=== PATIENT | female | born 1960 | race Caucasian/White ===

== ENCOUNTER 2025-01-20 15:30 | Emergency (ER) | payer MEDICARE, BC, SELFPAY ==
[2025-01-20 15:31] VITALS: BP 141/86; PULSE 86; RESP 16; TEMP 36.8; O2SAT 98; BMI 23.8
--- NOTE | 2025-01-20 15:35 | RAD_ITS ---
PROCEDURE: WRIST MIN 3 VIEWS 01/20/2025 REASON FOR EXAM: PAIN TECHNIQUE: WRIST MIN 3 VIEWS COMPARISON: None FINDINGS: See below RAD/Wrist min 3 Views IMPRESSION: [id number] displaced fracture of the distal radius, with dorsal transla tion and angulation of the distal fragment. Additionally, there is a minimally displaced fracture of the ulnar styloid proc ess. Soft tissue swelling throughout the wrist. Degenerative changes at the 1st carpometacarpal and triscaphe joints. Reading Location: [facility]
--- NOTE | 2025-01-20 16:07 | EDS_ITS ---
HPI History of Present Illness Chief Complaint: Upper Extremity Injury Detail of Chief Complaint: Injury to right wrist Informant: patient Narrative Narrative: Patient presents the emergency department with complaint of injury to the right wrist. Patient states that she had been on a stationary bike and then was walking back into the house with her cane when she lost her balance and fell. She injured her right wrist. She is right-hand dominant. She denies regular head or loss of consciousness. She denies neck pain. She is not anticoagulated. PFSH PFSH Home Medications ?Medication ?Instructions ?Recorded ?Last Taken ?Type hydrocodone-acetaminophen 5-325mg 1 tab PO Q4H PRN PRN Pain 2 days 01/20/25 Unknown Rx 5mg-325mg #14 TABLETS Allergy/AdvReac Type Severity Reaction Status Date / Time No Known Allergies Allergy Verified 01/20/25 15:30 Social History Smoking Status: Never smoker ROS ROS ED Review of Systems ROS Unobtainable: other Constitutional Constitutional ED: Reports lethargy; Denies chills, fever(s), sweats or weight loss Eyes Eyes: Denies blurry vision, change in vision or diplopia ENT ENT ED: Denies rhinorrhea or sore throat Cardiovascular Cardiovascular: Denies chest pain, orthopnea or racing heartbeat Respiratory/Chest Respiratory/Chest: Denies cough, dyspnea, dyspnea on exertion, orthopnea or sputum Gastrointestinal Gastrointestinal: Denies abdominal pain, diarrhea, nausea or vomiting Genitourinary Genitourinary ED: Denies dysuria, hematuria or urinary frequency Musculoskeletal Musculoskeletal: Reports other Details: Right wrist injury/pain ; Denies arthralgias, back pain, myalgias or neck pain Integumentary Denies abscess, Abrasions or rash Neurologic Neurologic: Denies headache(s) or weakness Psychiatric Psychiatric: Denies anxiety, depression or suicidal thoughts Endocrine Endocrinology: Denies polydipsia, polyphagia or polyuria Hematologic/Lymphatic Hematologic/Lymphatic: Denies easy bleeding, easy bruising or lymphadenopathy Allergic/Immunologic Allergic/Immunologic ED: Denies mouth swelling, tongue swelling or urticaria EXAM Physical Exam Const Vital Signs: 01/20/25 15:31 Temperature 98.2 F Temperature Source Oral Pulse Rate 86 Respiratory Rate 16 Blood Pressure 141/86 H Blood Pressure Mean 104 Pulse Ox 98 Oxygen Delivery Method Room Air Positive well nourished and well developed General Appearance ED: well developed and NAD HEENT Reports TM's clear and moist mucous membranes normocephalic and atraumatic; Negative for trauma or tenderness Tympanic Membrane ED: Yes TM's clear Eyes PERRL and EOMs intact bilaterally General Eye ED: Negative for pale conjunctiva or scleral icterus Neck no lymphadenopathy, supple and no JVD General: Negative for tenderness Chest Wall inspection of chest normal and palpation of chest normal Chest: Negative for tenderness Resp normal respiratory effort and clear to auscultation bilaterally Effort and Inspection: Negative for respiratory distress or pain with movement Auscultation: Negative for rhonchi, wheezes or diminished lung sounds Cardio regular rate, regular rhythm, S1 normal heart sound, S2 normal heart sound and no murmurs Peripheral Pulses: pulses 2+ throughout GI normal to inspection, nondistended, normoactive bowel sounds, soft to palpation, non-tender, non-distended and no masses Back/Spine no CVA tenderness and no thoracic nor lumbar tenderness Extremity Extremity Narrative: Right wrist-held in flexion with obvious deformity. No broken skin. Neurovascular intact distally. Tenderness diffusely over the distal radius. General Extremety ED: Negative for edema General Extremity: Negative for edema Neuro oriented x3, CN's II-XII intact bilaterally, no sensory deficits noted and gait normal Sensorium / Orientation: awake, alert, oriented to person, oriented to place and oriented to time Motor Exam: strength 5/5 throughout and strength abnormal Psych mental status grossly normal Skin no rashes or lesions noted and no wounds MDM MDM MDM Narrative Medical decision making narrative: Patient presents with fall and injury to the right wrist. X-rays obtained showed a distal radius fracture with ulnar styloid fracture. Patient was consented for procedural sedation with propofol. She was given morphine and Zofran for pain initially. She was given total of 90 mg of propofol with good sedation. I reduced the fracture and splinted her with an AP splint. Discussed case with orthopedics on-call Dr. Rasheed who was able to evaluate the images and will follow-up in the office. Patient will be given a prescription for [place] for pain. She will be given a sling. Radiography Diagnostic Testing: Three-view x-rays of the right wrist obtained interpreted by myself as distal radius fracture with about 50% displacement initially and dorsally angulated and nondisplaced ulnar styloid fracture. Radiology in agreement. Three-view x-rays postreduction obtained interpreted by myself as improved alignment and good reduction of fracture. Procedures Procedural Sedation 1 (Initial Baseline): Consent Signed: Yes Any Problems With Anesthesia: No You/Your family experience fever (hyperthermia) w/anesthesia: No Sedation medication: Propofol Dose: 90 Route: IV [place]ampati Score: Class I ASA Classification: I Discharge Plan Triage Chief Complaint: Upper Extremity Injury ED Provider: Shaylee Hay Dx/Rx/DC Orders Clinical Impression: Closed fracture of right distal radius Instructions: ED Colles Fracture, Reduction Required Prescriptions: New hydrocodone-acetaminophen 5-325 mg tablet 1 tab PO Q4H PRN PRN (Reason: Pain) 2 Days Qty: 14 0RF Primary Care Provider: Khadijah Lo Referrals: Alecia Garcia DO [Med Staff - Nursing Education Consultant] - Abdon Rasheed DO [Med Staff - Active Staff] - 3-5 Days Print Language: Lao Disposition Disposition: Home, Self Care
[2025-01-20 17:30] VITALS: BP 102/63; BP 140/65; BP 147/95; PULSE 107; PULSE 70; PULSE 94; RESP 18; TEMP 37; O2SAT 98; O2SAT 99
--- NOTE | 2025-01-20 17:52 | RAD_ITS ---
PROCEDURE: WRIST MIN 3 VIEWS 01/20/2025 REASON FOR EXAM: POST REDUCTION TECHNIQUE: WRIST MIN 3 VIEWS COMPARISON: Right wrist radiographs on 01/20/2025 FINDINGS: See below RAD/Wrist min 3 Views IMPRESSION: Overlying cast limits detailed bone and soft tissue evaluation. There is improv ed alignment of the distal radius fracture, now near anatomic. Minimally displaced ulnar styloid process fracture is not well visualized. Persistent soft tissue swelling. Reading Location: [facility]
[2025-01-20 17:55] VITALS: BP 106/78; PULSE 72; RESP 18; O2SAT 98
[2025-01-20 18:00] VITALS: BP 141/80; PULSE 72; RESP 16; O2SAT 98
--- NOTE | 2025-01-20 18:50 | CM.ED ---
Social Work Date of referral: 01/20/25 Reason for referral: Support/Discharge Planning Referred by: ED Doctor Patient provided consent to Social Work visit. Patient very tearful and stated she is in the process of obtaining what appears to be an ALS diagnosis. Patient stated she worked up through 2023 at which point she began having problems with her legs/walking. Patient has not returned to work since May. Patient's is retired. Patient has a rollator as well as another 3-wheeled ambulation device, rented a wheelchair for a month and has another scooter type device she has ordered through [employer]. Patient has a floor to ceiling grab-bar and patient's confirmed he will be able to help as needed. Patient is depressed, however denied having any thoughts of wanting to kill herself. There are guns in the home which patient and patient's confirmed are locked and secured and patient has no access/knowledge of where the keys are kept. Benefits Processor reviewed available supports such as Home Health Aide ([employer]) Companies as well as resources for mental health which patient accepted and expressed appreciation for. [employer]'s will be able to assist patient with showering, dressing/hygiene and anything else needed. Patient's preforms housekeeping, laundry, meal preparation, and shopping. Benefits Processor provided overall emotional support and encouragement. No other needs/concerns identified at this time. Rhiannon Dyer, [place]ONNA, CEMENT WORKER (18:51)
[2025-01-20 19:18] VITALS: BP 143/91
[2025-01-20 19:19] VITALS: BP 143/90; PULSE 79; RESP 16; TEMP 36.9; O2SAT 100
--- NOTE | 2025-01-20 19:19 | ED.RN ---
pt. instructed on use of sling to prevent and help swelling, pain medication.
== END 2025-01-20 19:20 | disposition home or self-care (01) ==
PROVIDERS: Emergency Provider Emergency Medicine; PCP Internal Medicine; Visit Provider Emergency Medicine
DX: S52.501A Unspecified fracture of the lower end of right radius, initial encounter for closed fracture (principal); S52.611A Displaced fracture of right ulna styloid process, initial encounter for closed fracture; W19.XXXA Unspecified fall, initial encounter
CPT/HCPCS: 73110; 96372; 99284; A4216; J2405